=== PATIENT | male | born 1985 | race Two or more races ===

== ENCOUNTER 2021-08-19 07:56 | Outpatient (REF) | payer OTHER, SELFPAY ==
[2021-08-19 10:32] LABS: MANUAL DIFF FLAG NO
[2021-08-19 10:41] LABS: Basophils Percent Auto 0.5 % (0-2); Eosinophils Absolute Auto 0.1 X10*3/uL (0.0-0.4); Eosinophils Percent Auto 0.9 % (0-4); Hematocrit 41.9 % (42-52); Hemoglobin 13.7 g/dl (14.0-18.0); Imm Gran Abs Auto 0.01 X10*3/uL (0.00-0.03); Imm Gran Pct Auto 0.2 % (0.0-0.4); Lymphocytes Absolute Auto 2.2 X10*3/uL (1.2-4.9); Lymphocytes Percent Auto 36.6 % (20-40); Mean Corpuscular HGB Conc 32.7 g/dl (31.0-36.0); Mean Corpuscular Hemoglobin 29.7 pg (27.0-33.0); Mean Corpuscular Volume 90.9 fL (80-98); Mean Platelet Volume 11.7 fL (9.4-12.4); Monocytes Absolute Auto 0.4 X10*3/uL (0.1-1.2); Neutrophils Absolute Auto 3.2 X10*3/uL (2.0-8.3); Neutrophils Percent Auto 54.8 % (45-73); Platelet Count 213 X10*3/uL (160-400); Red Blood Count 4.61 X10*6/uL (4.60-5.80); Red Cell Distribution Width 12.7 % (11.0-16.0); White Blood Count 5.9 X10*3/uL (4.8-10.8)
[2021-08-19 11:26] LABS: Alanine Aminotransferase 24 U/L (0-40); Albumin Level 4.5 g/dL (3.5-5.0); Alkaline Phosphatase 53 U/L (39-117); Anion Gap 12 (12-20); Aspartate Amino Transferase 22 U/L (5-37); Bilirubin Total 0.4 mg/dL (0.0-1.0); Blood Urea Nitrogen 11 mg/dL (9-16); Calcium 9.7 mg/dL (8.4-10.2); Carbon Dioxide 30 mmol/L (22-29); Chloride 103 mmol/L (96-108); Cholesterol 195 mg/dL; Estimated Glomerular Filt Rate > 60; Glucose Fasting 98 mg/dL (60-99); HDL Cholesterol 45 mg/dL; LDL Cholesterol Calculated 131 mg/dl; Potassium 4.7 mmol/L (3.3-5.1); Sodium 140 mmol/L (135-145); Total Protein 6.9 g/dL (6.5-8.0); Triglycerides 95 mg/dL
[2021-08-19 12:07] LABS: Appearance Urine CLEAR; Color Urine YELLOW; Glucose Urine UA NEG (NEG); Leukocyte Esterase Urine NEG (NEG); Nitrite Urine NEG (NEG); Urine Blood TRACE (NEG); Urine Ketones NEG (NEG); Urine Protein NEG (NEG-TRACE)
[2021-08-19 12:31] LABS: TSH reflex Free T4 0.98 uIU/mL (0.32-4.0)
[2021-08-19 14:33] LABS: RBC Urine 0-2 /HPF (0); WBC Urine 0 /HPF (0-4)
[2021-08-24 14:50] LABS: Testosterone, Free 86.1 pg/mL (35.0-155.0); Testosterone, Total 489 ng/dL (250-1100)
== END 2021-08-19 07:57 | disposition home or self-care (01) ==
LOC: HO.WFDLDS 07:56
PROVIDERS: Visit Provider Family Medicine
DX: Z00.00 Encounter for general adult medical examination without abnormal findings (principal); R53.83 Other fatigue
CPT/HCPCS: 36415; 80053; 80061; 81001; 81003; 84402; 84403; 84443; 85025

== ENCOUNTER 2021-11-06 12:13 | Outpatient (REF) | payer OTHER, SELFPAY ==
[2021-11-06 13:24] LABS: MANUAL DIFF FLAG NO
[2021-11-06 13:31] LABS: Basophils Percent Auto 0.7 % (0-2); Eosinophils Absolute Auto 0.1 X10*3/uL (0.0-0.4); Eosinophils Percent Auto 1.5 % (0-4); Hemoglobin 14.1 g/dl (14.0-18.0); Imm Gran Abs Auto 0.01 X10*3/uL (0.00-0.03); Imm Gran Pct Auto 0.2 % (0.0-0.4); Lymphocytes Absolute Auto 2.2 X10*3/uL (1.2-4.9); Lymphocytes Percent Auto 37.1 % (20-40); Mean Corpuscular HGB Conc 33.6 g/dl (31.0-36.0); Mean Corpuscular Hemoglobin 30.5 pg (27.0-33.0); Mean Corpuscular Volume 90.7 fL (80.0-98.0); Mean Platelet Volume 11.3 fL (9.4-12.4); Monocytes Absolute Auto 0.6 X10*3/uL (0.1-1.2); Monocytes Percent Auto 9.4 % (2-11); Neutrophils Percent Auto 51.1 % (45-73); Platelet Count 253 X10*3/uL (160-400); Red Blood Count 4.63 X10*6/uL (4.60-5.80); Red Cell Distribution Width 12.1 % (11.0-16.0); White Blood Count 5.9 X10*3/uL (4.8-10.8)
== END 2021-11-06 12:14 | disposition home or self-care (01) ==
LOC: HO.WFDLDS 12:13
PROVIDERS: Visit Provider Family Medicine
DX: Z00.00 Encounter for general adult medical examination without abnormal findings (principal); D64.9 Anemia, unspecified
CPT/HCPCS: 36415; 85025

== ENCOUNTER → 2022-01-28 09:23 | Outpatient (BNVA) | payer OTHER, SELFPAY | PROVIDERS: PCP Family Medicine; Referring Provider Family Medicine; Visit Provider Psychiatry & Neurology Neurology | DX: G47.19 Other hypersomnia (principal); R06.83 Snoring; R06.81 Apnea, not elsewhere classified | CPT/HCPCS: 99202 ==

== ENCOUNTER → 2022-03-27 14:42 | Outpatient (REF) | payer OTHER, SELFPAY | LOC: HO.SL 14:42 | PROVIDERS: PCP Family Medicine; Visit Provider Psychiatry & Neurology Neurology | DX: R06.81 Apnea, not elsewhere classified (principal); G47.19 Other hypersomnia; R06.83 Snoring | CPT/HCPCS: 95806 ==

== ENCOUNTER → 2022-09-24 14:59 | Outpatient (BNVA) | payer OTHER, SELFPAY | PROVIDERS: PCP Family Medicine; Visit Provider Nurse Practitioner Family | DX: G47.33 Obstructive sleep apnea (adult) (pediatric) (principal) | CPT/HCPCS: 99202 ==

== ENCOUNTER 2022-12-08 19:06 | Outpatient (REF) | payer OTHER, SELFPAY ==
[2022-12-08 19:08] LABS: Urine Cytology See Pathology rpt
[2022-12-08 19:13] LABS: Appearance Urine Clear; Color Urine Yellow; Glucose Urine UA Negative (Negative); Leukocyte Esterase Urine Negative (Negative); Nitrite Urine Negative (Negative); Specific Gravity - Urine 1.015 (1.005-1.025); UMIC TRIGGER UA YES; Urine Blood Small (1+) (Negative); Urine Ketones Negative (Negative); Urine Protein Negative (Neg-Trace)
[2022-12-08 19:28] LABS: Bacteria Urine None Seen (None Seen); Hyaline Casts Urine 0-2 /LPF (0-2); RBC Urine 0-2 /HPF (0-2); Squamous Epithelial Cell Urine 0-2 /HPF (0-2); WBC Urine 0-5 /HPF (0-5)
== END 2022-12-08 19:07 | disposition home or self-care (01) ==
LOC: HO.LNP 19:06
PROVIDERS: Visit Provider Family Medicine
DX: R31.9 Hematuria, unspecified (principal)
CPT/HCPCS: 81001; 88112

== ENCOUNTER 2023-01-29 14:04 | Outpatient (REF) | payer OTHER, SELFPAY ==
[2023-01-29 16:40] LABS: Urine Cytology See Pathology rpt
== END 2023-01-29 14:05 | disposition home or self-care (01) ==
LOC: HO.LAB 14:04
PROVIDERS: PCP Family Medicine; Visit Provider Nurse Practitioner Family
DX: R31.29 Other microscopic hematuria (principal); Z79.899 Other long term (current) drug therapy
CPT/HCPCS: 88112; 99202

== ENCOUNTER 2023-02-23 15:47 | Outpatient (REF) | payer OTHER, SELFPAY ==
--- NOTE | ~2023-02-23 | US_ITS ---
EXAMINATION: US RETROPERITONEAL LIMITED (RENAL ONLY) CLINICAL INFORMATION: Hematuria, unspecified. COMPARISON: Renal ultrasound 10/25/2019. TECHNIQUE: Real-time imaging of the kidneys. FINDINGS: RIGHT KIDNEY: 13.1 x 6.0 x 5.8 cm (SAG x AP x TRV). The kidney is normal in size, contour, and echogenicity. Renal cortical thickness is normal. No calculi or focal parenchymal lesions. No hydronephrosis. LEFT KIDNEY: 13.7 x 6.5 x 5.8 cm (SAG x AP x TRV). The kidney is normal in size, contour, and echogenicity. Renal cortical thickness is normal. No renal calculi or hydronephrosis. There is a benign Bosniak class I, 2.3 cm upper pole cyst. No additional imaging or follow up is needed. No solid renal masses. Incidental note made of an echogenic liver consistent with hepatic steatosis. US/US renal BI IMPRESSION: 1. A cause for the patient's hematuria has not been found. 2. Incidentally noted hepatic steatosis.
== END 2023-02-23 15:48 | disposition home or self-care (01) ==
LOC: HO.HMGCX 15:47
PROVIDERS: PCP Family Medicine; Visit Provider Nurse Practitioner Family
DX: R31.9 Hematuria, unspecified (principal)
CPT/HCPCS: 76775

== ENCOUNTER 2023-03-09 15:13 | Outpatient (REF) | payer OTHER, SELFPAY ==
--- NOTE | ~2023-03-09 | US_ITS ---
EXAMINATION: US PELVIS LIMITED (BLADDER) CLINICAL INFORMATION: Hematuria. COMPARISON: Ultrasound retroperitoneal limited (renal only) 02/23/2023 and 10/25/2019. TECHNIQUE: Real-time imaging of the bladder. FINDINGS: BLADDER: Well distended and normal. Bilateral ureteral jets are demonstrated. Prevoid bladder volume is 505 mL. Postvoid bladder volume is 10 mL. OTHER: Prostate dimensions are 3.9 x 4.0 x 3.8 cm (volume 30.9 mL). US/US bladder IMPRESSION: 1. Unremarkable ultrasound evaluation of the bilateral kidneys. 2. There is borderline prostatomegaly.
== END 2023-03-09 15:14 | disposition home or self-care (01) ==
LOC: HO.HMGCX 15:13
PROVIDERS: PCP Family Medicine; Visit Provider Nurse Practitioner Family
DX: R31.9 Hematuria, unspecified (principal)
CPT/HCPCS: 76857

== ENCOUNTER → 2023-03-13 15:10 | Outpatient (BNVA) | payer OTHER, SELFPAY | PROVIDERS: PCP Family Medicine; Visit Provider Urology | DX: R31.29 Other microscopic hematuria (principal) | CPT/HCPCS: 52000; 99212 ==

== ENCOUNTER 2023-06-19 10:10 | Outpatient (REF) | payer OTHER, SELFPAY ==
[2023-06-19 12:51] LABS: Appearance Urine Clear; Color Urine Yellow; Glucose Urine UA Negative (Negative); Leukocyte Esterase Urine Negative (Negative); Nitrite Urine Negative (Negative); Specific Gravity - Urine 1.025 (1.005-1.025); UMIC TRIGGER UA YES; Urine Blood Small (1+) (Negative); Urine Ketones Negative (Negative); Urine Protein Negative (Neg-Trace)
[2023-06-19 13:55] LABS: MANUAL DIFF FLAG NO
[2023-06-19 14:20] LABS: Basophils Percent Auto 0.4 % (0-2); Eosinophils Absolute Auto 0.1 X10*3/uL (0.0-0.4); Eosinophils Percent Auto 1.3 % (0-4); Hematocrit 42.8 % (42.0-52.0); Hemoglobin 13.9 g/dl (14.0-18.0); Imm Gran Abs Auto 0.01 X10*3/uL (0.00-0.03); Imm Gran Pct Auto 0.2 % (0.0-0.4); Lymphocytes Percent Auto 38.4 % (20-40); Mean Corpuscular HGB Conc 32.5 g/dl (31.0-36.0); Mean Corpuscular Hemoglobin 29.4 pg (27.0-33.0); Mean Corpuscular Volume 90.7 fL (80.0-98.0); Mean Platelet Volume 11.8 fL (9.4-12.4); Monocytes Absolute Auto 0.4 X10*3/uL (0.1-1.2); Monocytes Percent Auto 8.2 % (2-11); Neutrophils Absolute Auto 2.7 x10*3/uL (2.0-8.3); Neutrophils Percent Auto 51.5 % (45-73); Platelet Count 236 X10*3/uL (160-400); Red Blood Count 4.72 X10*6/uL (4.60-5.80); Red Cell Distribution Width 12.7 % (11.0-16.0); White Blood Count 5.3 X10*3/uL (4.8-10.8)
[2023-06-19 14:24] LABS: Bacteria Urine None Seen (None Seen); Hyaline Casts Urine 0-2 /LPF (0-2); Squamous Epithelial Cell Urine 0-2 /HPF (0-2); WBC Urine 0-5 /HPF (0-5)
[2023-06-19 14:36] LABS: Creatinine Urine 119.16 mg/dL; Microalbum/Creatinine Ratio Ur 7.5 ug/mg cr
[2023-06-19 14:44] LABS: Alanine Aminotransferase 35 U/L (0-40); Albumin Level 4.6 g/dL (3.5-5.0); Alkaline Phosphatase 49 U/L (39-117); Anion Gap 13 (12-20); Aspartate Amino Transferase 26 U/L (5-37); Bilirubin Total 0.5 mg/dL (0.0-1.0); Blood Urea Nitrogen 13 mg/dL (9-16); Calcium 9.7 mg/dL (8.4-10.2); Carbon Dioxide 28 mmol/L (22-29); Chloride 102 mmol/L (96-108); Cholesterol 203 mg/dL; Estimated Glomerular Filt Rate > 60; Glucose Fasting 71 mg/dL (60-99); HDL Cholesterol 42 mg/dL; LDL Cholesterol Calculated 149 mg/dl; Potassium 3.5 mmol/L (3.3-5.1); Sodium 139 mmol/L (135-145); Total Protein 7.5 g/dL (6.5-8.0); Triglycerides 63 mg/dL
[2023-06-19 15:00] LABS: TSH reflex Free T4 1.54 uIU/mL (0.32-4.0)
[2023-06-19 15:36] LABS: Syphilis Screen Nonreactive (Nonreactive)
[2023-06-22 09:12] LABS: HBS Num1 0.38 mIU/mL (0-7.99); HBc Num1 0.05 S/CO (0.00-0.79); HBsAGNum1 0.37 S/CO (0.00-0.99); HIV AB/AG Nonreactive (Nonreactive); HIV Num 1 0.06 S/CO (0.00-0.99); Hepatitis B Core Antibody Nonreactive (Nonreactive); Hepatitis B Surface Antigen Negative (Negative); ~HepC Num1 0.13 S/CO (0.00-0.79); ~Hepatitis B Surface Antibody NONREACTIVE (Nonreactive); ~Hepatitis C Antibody Nonreactive (Nonreactive)
== END 2023-06-19 10:11 | disposition home or self-care (01) ==
LOC: HO.WFDLDS 10:10
PROVIDERS: Visit Provider Family Medicine
DX: Z00.00 Encounter for general adult medical examination without abnormal findings (principal); Z11.3 Encounter for screening for infections with a predominantly sexual mode of transmission; Z11.4 Encounter for screening for human immunodeficiency virus [HIV]; I10 Essential (primary) hypertension
CPT/HCPCS: 36415; 80053; 80061; 81001; 82043; 84443; 85025; 86704; 86706; 86780; 86803; 87340; 87389

== ENCOUNTER 2023-06-24 15:29 | Outpatient (AMB) | payer OTHER, SELFPAY ==
--- NOTE | 2023-06-24 16:09 | MHC.OFFWIV ---
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 Patient Tobacco Use Status: Never used Tobacco Allergies ibuprofen [From Advil] Allergy (Mild, Verified 06/25/23 06:16) unknown ampicillin Allergy (Unknown, Verified 06/25/23 06:16) eye swelling, blisters aspirin Allergy (Unknown, Verified 06/25/23 06:16) swelling, bllisters penicillin G Allergy (Unknown, Verified 06/25/23 06:16) blisters, swelling penicillin V Allergy (Unknown, Verified 06/25/23 06:16) Blisters, swelling. Medication List - Last Reconciled 06/25/23 by Jakub Miller MD [id number] [id number] mg (Fioricet) 1 cap PO Q8H 2 days cyanocobalamin (vitamin B-12) (Vitamin B-12) 1,000 mcg PO .weekly cyclobenzaprine 10 mg PO BEDTIME doxycycline hyclate 100 mg PO BID 5 days losartan 50 mg PO DAILY niacin 500 mg PO DAILY nitrofurantoin macrocrystal 50 mg PO BEDTIME 90 days prednisone 20 mg PO DAILY 5 days Do you need a note to return to daycare/school/sports/work: No HPI EP, Low back/left side pain HPI Details Patient presents to the office for a sick visit. Complaining of lower back pain for the past week. No history of fall or trauma prior to the onset of symptoms. No urinary incontinence. No fevers or chills. Pain is worse on bending forwards or sideways. Relieve done sitting down. Pain is radiating into the gluteal area. PFSH Surgical History Hx of tooth extraction Family History (Updated 05/29/23 @ 16:29 by Bernie Cai CMA) Father Heart attack Paternal Grandfather Heart attack Paternal Uncle Heart attack Maternal Aunt FH: bladder cancer Unknown Cancer Social History Housing: House Alcohol intake: never Patient Tobacco Use Status: Never used Tobacco e-Cigarette/Vaping Use: Never Used Second Hand Smoke Exposure: No service: No Current occupational status: employed Current occupation: warehouse Current occupational exposures/hazards: No Cognitive needs: No Hearing needs: No Vision needs: No Physical Exam Vital Signs: Last Vital Signs Pulse 78 06/24/23 16:13 BP 136/90 H 06/24/23 16:13 Pulse Ox 98 06/24/23 16:13 Oxygen Delivery Method Room Air 06/24/23 16:13 Const General: cooperative and healthy appearing Nutritional Appearance: well nourished Orientation/consciousness: patient oriented x3 Limitations: no limitations HEENT Head: Yes normal to inspection Eyes General: appearance normal, both eyes and all related structures Neck Neck: Yes normal visual inspection Chest Chest palpation & inspection: normal palpation of entire chest wall Resp Effort & Inspection: normal respiratory effort Neuro General: patient oriented x3 Assessment & Plan Assessment & Plan (1) Low back pain: Code(s): M54.50 - Low back pain, unspecified Plan cyclobenzaprine called in. d. Patient was advised rest. Note for work if necessary provided. Once pain symptoms subside, patient should start physical therapy. If symptoms worsen to follow-up here. Patient was reluctant to take any anti-inflammatories. Advised him to take Tylenol. Medications: New cyclobenzaprine 10 mg PO BEDTIME 14 tabs 0RF Coding Level of Care Code Est Pt Level 3 (37484) Diagnoses Low back pain M54.50
[2023-06-24 16:13] VITALS: BP 136/90; PULSE 78; O2SAT 98
== END 2023-06-24 16:26 | disposition home or self-care (01) ==
PROVIDERS: PCP Family Medicine; Visit Provider Internal Medicine
DX: M54.50 Low back pain, unspecified (principal)
CPT/HCPCS: 99213

== ENCOUNTER 2023-06-25 10:32 | Outpatient (AMB) | payer OTHER, SELFPAY ==
[2023-06-25 10:40] VITALS: BP 140/88; PULSE 86; O2SAT 97; BMI 30.6
--- NOTE | 2023-06-25 10:40 | MHC.PC.OV ---
Vital Signs 06/25/23 10:40 Height 5 ft 9 in Weight 207 lb BMI 30.6 BP 140/88 H Blood Pressure Location Lt brachial Position Sitting Pulse 86 Pulse Source Pulse Oximeter Pulse Oximetry (%) 97 Intake Visit Reasons: back pain Intake Note: pt is here for back pain due to pulled muscle due to lifting appliances. patient was seen in walk in clinic in [place] yesterday and was given cyclobenzaprine Barrel Turner Required: No Accompanied by: Self / Same As Patient Allergies ibuprofen [From Advil] Allergy (Mild, Verified 06/25/23 10:41) unknown ampicillin Allergy (Unknown, Verified 06/25/23 10:41) eye swelling, blisters aspirin Allergy (Unknown, Verified 06/25/23 10:41) swelling, bllisters penicillin G Allergy (Unknown, Verified 06/25/23 10:41) blisters, swelling penicillin V Allergy (Unknown, Verified 06/25/23 10:41) Blisters, swelling. Tobacco use date assessed: 06/25/23 Dental Screening Dental Screen Date: 06/25/23 Did you have a dental visit in the last 12 months?: Yes Did you have a dental problem in the last 6 months where you did not have access to dental care?: No Was dental information given to patient?: Patient has dentist HPI back pain HPI Details 38 y/o male presents today with complaints of back pain. Had seen Dr. Miller yesterday 06/24/23 for back pain - was advisted rest and prescribed cyclobenzaprine 10mg. Was also advised to take tylenol. Pt had been reluctant to take any anti-inflammatories. He reports ongoing pain and cyclobenzaprine has not helped. [facility] Surgical History Hx of tooth extraction Family History Father Heart attack Paternal Grandfather Heart attack Paternal Uncle Heart attack Maternal Aunt FH: bladder cancer Unknown Cancer Social History Housing: House Alcohol intake: never Patient Tobacco Use Status: Never used Tobacco e-Cigarette/Vaping Use: Never Used Second Hand Smoke Exposure: No service: No Current occupational status: employed Current occupation: [employer] Current occupational exposures/hazards: No Cognitive needs: No Hearing needs: No Vision needs: No Questionnaire PHQ-9 Over the last 2 weeks, how often have you been bothered by any of the following problems? 1. Little interest or pleasure in doing things: not at all 2. Feeling down, depressed, or hopeless: not at all 3. Trouble falling or staying asleep, or sleeping too much: not at all 4. Feeling tired or having little energy: not at all 5. Poor appetite or overeating: not at all 6. Feeling bad about yourself - or that you are a failure or have let yourself or your family down: not at all 7. Trouble concentrating on things, such as reading the newspaper or watching television: not at all 8. Moving or speaking so slowly that other people could have noticed. Or the opposite - being so fidgety or restless that you have been moving around a lot more than usual: not at all 9. Thoughts that you would be better off or of hurting yourself in some way: not at all Total score: 0 Source: Developed by Drs. Joel Pedersen, Charlee Nagy, Pawel Aburto and colleagues, with an educational nahed from [employer]. Thrive Questionnaire Date Thrive assessed: 12/08/22 ZHOU-7 AMB Questionnaire ZHOU-7 Date ZHOU - 7 assessed: 06/25/23 Feeling nervous, anxious, or on edge: 0 = Not at all Not being able to stop or control worryin = Not at all Worrying too much about different things: 0 = Not at all Trouble relaxin = Not at all Being so restless that it is hard to sit still: 0 = Not at all Becoming easily annoyed or irritable: 0 = Not at all Feeling afraid as if something awful might happen: 0 = Not at all Total ZHOU-7 score (0-4 normal; 5-9 mild; 10-14 moderate; 15-21 severe): 0 Source: Developed by Drs. Joel Pedersen, Charlee Nagy, Pawel Aburto and colleagues, with an educational nahed from [employer]. ZHOU-7 Assessment Billing ZHOU-7 Assessment Tool: ZHOU-7 Assessment 69678 Review of Systems Const Denies chills, Denies fatigue, Denies fever(s), Denies headache(s) and Denies weakness ENT Denies dizziness and Denies headache(s) Card Denies dyspnea Resp Denies cough, Denies dyspnea, Denies wheezing and Denies other (shortness of breath) Musc Reports back pain, Denies numbness and Denies tingling Neuro Denies dizziness, Denies headache(s), Denies numbness, Denies tingling and Denies weakness Psych Denies anxiety and Denies depression Endo Denies fatigue Aller/Immun Denies wheezing Physical exam (Primary Care) Vital Signs: Last Vital Signs Pulse 86 06/25/23 10:40 BP 140/88 H 06/25/23 10:40 Pulse Ox 97 06/25/23 10:40 BMI result Body Mass Index 30.6 Tobacco/Smoking Status: Tobacco use Status Tobacco use date assessed 06/25/23 06/25/23 10:42 Patient Tobacco Use Status Never used Tobacco 06/25/23 10:42 e-Cigarette/Vaping Use Never Used 06/25/23 10:42 PHQ-9: PHQ-9 Score PHQ-9: Total score 0 06/25/23 11:27 Thrive Assessment: Date of Thrive Assessment Date Thrive assessed 12/08/22 06/25/23 10:42 Const General: well developed; No acute distress Nutritional Appearance: well nourished Orientation/consciousness: patient oriented x3 [facility] Head: Yes normocephalic and Yes atraumatic Eyes General: appearance normal, both eyes and all related structures Pupils: Equal, round and reactive pupils present EOM: EOMs intact bilaterally Resp Effort & Inspection: normal respiratory effort Neuro Other: Walking hunched over, unsteady gait General: patient oriented x3 and No gait normal Cranial nerves: Yes Equal, round and reactive pupils present Psych Affect: normal affect Assessment and Plan Assessment & Plan (1) Low back pain: Code(s): M54.50 - Low back pain, unspecified Plan: Ongoing severe back pain. Was seen at the walk-in yesterday in given cyclobenzaprine. Cannot take oral NSAIDs or aspirin due to allergy. Will check x-ray of lumbar spine Will give patient a 5 day course prednisone and he can trial a topical NSAID. He says he has tolerated oral diclofenac in the past so will give him Voltaren gel. He should still test gel on a small patch of skin prior to using as treatment. Advised him to change cyclobenzaprine to twice a day for 7 days Will give him a cane to help him with balance Will follow-up on x-ray (2) Unsteady gait: Code(s): R26.81 - Unsteadiness on feet Orders: Orders XR lumbar spine 2-3V Today M54.50 - Low back pain, unspecified Medications: New diclofenac sodium 1% (Voltaren Arthritis Pain) Test on small patch of skin prior to treatment to evaluate for sensitivity/allergy 4 grams topical QID 10 days 100 grams 0RF prednisone 40 mg (2 x 20 mg) PO DAILY 5 days 10 tabs 0RF cane Daily As directed, 30 days 1 ea 0RF M54.50 - Low back pain, unspecified, R26.81 - Unsteadiness on feet Changed From cyclobenzaprine 10 mg PO BEDTIME 14 tabs 0RF To cyclobenzaprine 10 mg PO BID 7 days 14 tabs 0RF Coding Level of Care Code Est Pt Level 3 (36288) Diagnoses Low back pain M54.50 Unsteady gait R26.81 Additional Codes ZHOU-7 Assessment Billing - ZHOU-7 Assessment Tool: ZHOU-7 Assessment 22559 ([id number])
== END 2023-06-25 11:45 | disposition home or self-care (01) ==
PROVIDERS: PCP Family Medicine; Visit Provider Family Medicine
DX: M54.50 Low back pain, unspecified (principal); R26.81 Unsteadiness on feet
CPT/HCPCS: 99213

== ENCOUNTER 2023-07-01 16:49 | Outpatient (AMB) | payer OTHER, SELFPAY ==
--- NOTE | 2023-07-01 16:34 | MHC.PC.OV ---
Intake Visit Reasons: f/u CPE-labs Intake Note: pt is here for review of labs Allergies ibuprofen [From Advil] Allergy (Mild, Verified 06/25/23 10:41) unknown ampicillin Allergy (Unknown, Verified 06/25/23 10:41) eye swelling, blisters aspirin Allergy (Unknown, Verified 06/25/23 10:41) swelling, bllisters penicillin G Allergy (Unknown, Verified 06/25/23 10:41) blisters, swelling penicillin V Allergy (Unknown, Verified 06/25/23 10:41) Blisters, swelling. Tobacco use date assessed: 06/25/23 Dental Screening Dental Screen Date: 07/01/23 Did you have a dental visit in the last 12 months?: Yes Did you have a dental problem in the last 6 months where you did not have access to dental care?: No Was dental information given to patient?: Patient has dentist HPI f/u CPE-labs HPI Details 38 y/o male presents to f/u CPE-labs via telemedicine. Labs were drawn 06/19/23. Reviewed labs with pt. Borderline anemia. Triglycerides 63. TC 203. LDL 149. HDL 42. Small 1+ blood in urine. PFSH Surgical History Hx of tooth extraction Family History Father Heart attack Paternal Grandfather Heart attack Paternal Uncle Heart attack Maternal Aunt FH: bladder cancer Unknown Cancer Social History Housing: House Alcohol intake: never Patient Tobacco Use Status: Never used Tobacco e-Cigarette/Vaping Use: Never Used Second Hand Smoke Exposure: No service: No Current occupational status: employed Current occupation: warehouse Current occupational exposures/hazards: No Cognitive needs: No Hearing needs: No Vision needs: No Questionnaire Thrive Questionnaire Date Thrive assessed: 12/08/22 ZHOU-7 AMB Questionnaire ZHOU-7 Date ZHOU - 7 assessed: 06/25/23 Source: Developed by Drs. Joel Pedersen, Charlee Nagy, Pawel Aburto and colleagues, with an educational nahed from [employer]. Physical exam (Primary Care) Tobacco/Smoking Status: Tobacco use Status Tobacco use date assessed 06/25/23 07/01/23 16:36 Patient Tobacco Use Status Never used Tobacco 07/01/23 16:36 e-Cigarette/Vaping Use Never Used 07/01/23 16:36 Thrive Assessment: Date of Thrive Assessment Date Thrive assessed 12/08/22 07/01/23 16:36 Telehealth Telehealth Location of provider rendering services: practice address Location of patient: address on file Patient Identification confirmed using: Name, : Yes Telehealth method: voice only Patient verbally consented to treatment: Yes Patient verbally consented to billing insurance company: Yes Patient informed of any privacy concerns related to visit: Yes Minutes spent on Phone/Video with Pt.: 7 Assessment and Plan Assessment & Plan (1) Mild anemia: Code(s): D64.9 - Anemia, unspecified Plan: Very mild/boderline anemia. Possibly secondary to chronic hematuria but will evaluate with additional labs with his next lab draw. (2) Hematuria: Code(s): R31.9 - Hematuria, unspecified Plan: Ongoing hematuria Follow-up with urology as recommended (3) Hypercholesterolemia: Code(s): E78.00 - Pure hypercholesterolemia, unspecified Plan: LDL cholesterol is too high Recommended a diet lower in saturated fats and cholesterol and we will follow-up on this in a few months. Orders: Orders Comprehensive [place]. Panel Fast Today E78.00 - Pure hypercholesterolemia, unspecified, Z00.00 - Encounter for general adult medical examination without abnormal findings Lipid Panel Today E78.00 - Pure hypercholesterolemia, unspecified, Z00.00 - Encounter for general adult medical examination without abnormal findings Reticulocyte Count Today D64.9 - Anemia, unspecified Vitamin B12 and Folate Today D64.9 - Anemia, unspecified, E53.8 - Deficiency of other specified B group vitamins Ferritin Today D64.9 - Anemia, unspecified IRON PROFILE Today D64.9 - Anemia, unspecified Medications: Refilled prednisone 40 mg (2 x 20 mg) PO DAILY 10 tabs 0RF 5 days Coding Level of Care Code Tele Est Pt Level 2 (80010) Diagnoses Mild anemia D64.9 Hematuria R31.9 Hypercholesterolemia E78.00
== END 2023-07-01 17:00 ==
LOC: HO.HMGFM 16:49
PROVIDERS: PCP Family Medicine; Visit Provider Family Medicine
DX: D64.9 Anemia, unspecified (principal); R31.9 Hematuria, unspecified; E78.00 Pure hypercholesterolemia, unspecified
CPT/HCPCS: 99212

== ENCOUNTER 2023-07-08 08:37 | Outpatient (AMB) | payer OTHER, SELFPAY ==
[2023-07-08 08:39] VITALS: BP 140/80; PULSE 74; O2SAT 96; BMI 30.9
--- NOTE | 2023-07-08 08:39 | MHC.PC.OV ---
Vital Signs 07/08/23 08:39 Height 5 ft 9 in Weight 209 lb BMI 30.9 BP 140/80 H Blood Pressure Location Lt brachial Position Sitting Pulse 74 Pulse Source Pulse Oximeter Pulse Oximetry (%) 96 Oxygen Delivery Method Room Air Intake Visit Reasons: Follow Up On Back Pain Intake Note: Patient is here to follow up on lower back pain. Allergies ibuprofen [From Advil] Allergy (Mild, Verified 07/08/23 08:42) unknown ampicillin Allergy (Unknown, Verified 07/08/23 08:42) eye swelling, blisters aspirin Allergy (Unknown, Verified 07/08/23 08:42) swelling, bllisters penicillin G Allergy (Unknown, Verified 07/08/23 08:42) blisters, swelling penicillin V Allergy (Unknown, Verified 07/08/23 08:42) Blisters, swelling. Tobacco use date assessed: 07/08/23 Dental Screening Dental Screen Date: 07/08/23 Did you have a dental visit in the last 12 months?: No Did you have a dental problem in the last 6 months where you did not have access to dental care?: No Was dental information given to patient?: No HPI Follow Up On Back Pain HPI Details 38 y/o male presents to f/u back pain. Had given pt a 5 day course prednisone on 06/25/23 and trialed a topical NSAID. Had also advised him to change cyclobenzaprine to twice a day for 7 days. He reports about a week ago his back pain had greatly improved. He reports however that he had lifted something simple at work and his back pain had returned. He states leaning forward causes him discomfort. Walking and standing up straight is fine. He has not gotten his x-rays done yet. HPI Comments History of Present Illness Details Documentation assistance for Gael Dean MD, was provided by Luis Mckinley, Software Applications Designer on 07/08/2023 9:03 PM EST. I, Dr. Dean, have read, observed, and verified documentation. PFSH Surgical History Hx of tooth extraction Family History Father Heart attack Paternal Grandfather Heart attack Paternal Uncle Heart attack Maternal Aunt FH: bladder cancer Unknown Cancer Social History Housing: House Alcohol intake: never Patient Tobacco Use Status: Never used Tobacco e-Cigarette/Vaping Use: Never Used Second Hand Smoke Exposure: No service: No Current occupational status: employed Current occupation: warehouse Current occupational exposures/hazards: No Cognitive needs: No Hearing needs: No Vision needs: No Questionnaire Thrive Questionnaire Date Thrive assessed: 12/08/22 ZHOU-7 AMB Questionnaire ZHOU-7 Date ZHOU - 7 assessed: 06/25/23 Source: Developed by Drs. Joel Pedersen, Charlee Nagy, Pawel Aburto and colleagues, with an educational nahed from [employer]. Review of Systems Const Denies chills, Denies fatigue, Denies fever(s), Denies headache(s) and Denies weakness ENT Denies dizziness and Denies headache(s) Card Denies dyspnea Resp Denies cough, Denies dyspnea, Denies wheezing and Denies other (shortness of breath) Musc Reports back pain, Denies numbness and Denies tingling Neuro Denies dizziness, Denies headache(s), Denies numbness, Denies tingling and Denies weakness Psych Denies anxiety and Denies depression Endo Denies fatigue Aller/Immun Denies wheezing Physical exam (Primary Care) Vital Signs: Last Vital Signs Pulse 74 07/08/23 08:39 BP 140/80 H 07/08/23 08:39 Pulse Ox 96 07/08/23 08:39 Oxygen Delivery Method Room Air 07/08/23 08:39 BMI result Body Mass Index 30.9 Tobacco/Smoking Status: Tobacco use Status Tobacco use date assessed 07/08/23 07/08/23 08:48 Patient Tobacco Use Status Never used Tobacco 07/08/23 08:48 e-Cigarette/Vaping Use Never Used 07/08/23 08:48 Thrive Assessment: Date of Thrive Assessment Date Thrive assessed 12/08/22 07/08/23 08:48 Const General: well developed; No acute distress Nutritional Appearance: well nourished Orientation/consciousness: patient oriented x3 [facility] Head: Yes normocephalic and Yes atraumatic Eyes General: appearance normal, both eyes and all related structures Pupils: Equal, round and reactive pupils present EOM: EOMs intact bilaterally Resp Effort & Inspection: normal respiratory effort Neuro General: patient oriented x3 and gait normal Cranial nerves: Yes Equal, round and reactive pupils present Psych Affect: normal affect Assessment and Plan Assessment & Plan (1) Low back pain: Code(s): M54.50 - Low back pain, unspecified Plan: Return of low back pain once he began working. Will give him the rest of the week off Use ice and heat Will give him a prednisone taper; patient has history of allergy to ibuprofen Use cyclobenzaprine Start physical therapy Will check lumbar spine x-rays If imaging indicates or if not improving with physical therapy, will refer to ortho (2) Drug allergy: Code(s): Z88.9 - Allergy status to unspecified drugs, medicaments and biological substances Plan: Patient notes allergies and specifically allergy to ibuprofen and requests referral for evaluation by allergy medicine Referred Orders: Orders PT Evaluation and Treatment Today M54.50 - Low back pain, unspecified XR lumbar spine 2-3V Today M54.50 - Low back pain, unspecified Referrals Allergy & Immunology Referral T78.40XA - Allergy, unspecified, initial encounter, Z88.9 - Allergy status to unspecified drugs, medicaments and biological substances Medications: New prednisone 4 tabs daily for 4 days, 3 tabs daily for 2 days, 2 tabs daily for 2 days, 1 tab daily for 2 days PO daily; 28 tabs 0RF 10 days Refilled cyclobenzaprine 10 mg PO BID 14 tabs 0RF 7 days diclofenac sodium 1% (Voltaren Arthritis Pain) Test on small patch of skin prior to treatment to evaluate for sensitivity/allergy 4 grams topical QID 100 grams 0RF 10 days Coding Level of Care Code Est Pt Level 3 (47223) Diagnoses Low back pain M54.50 Drug allergy Z88.9
== END 2023-07-08 09:21 | disposition home or self-care (01) ==
PROVIDERS: PCP Family Medicine; Visit Provider Family Medicine
DX: M54.50 Low back pain, unspecified (principal); Z88.9 Allergy status to unspecified drugs, medicaments and biological substances
CPT/HCPCS: 99213

== ENCOUNTER 2023-07-13 16:33 | Outpatient (REF) | payer OTHER, SELFPAY ==
--- NOTE | ~2023-07-13 | XR_ITS ---
EXAMINATION: XR LUMBOSACRAL SPINE CLINICAL INFORMATION: Low back pain. COMPARISON: None available. TECHNIQUE: Three views of the lumbosacral spine. FINDINGS: The vertebral bodies and posterior elements are normal. The disc spaces are preserved and the vertebral alignment is normal. The paraspinal soft tissues are normal. XR/XR lumbar spine 2-3V IMPRESSION: Unremarkable lumbar spine.
== END 2023-07-13 16:34 | disposition home or self-care (01) ==
LOC: HO.HMGCX 16:33
PROVIDERS: PCP Family Medicine; Visit Provider Family Medicine
DX: M54.50 Low back pain, unspecified (principal)
CPT/HCPCS: 72100

== ENCOUNTER 2023-09-14 13:11 | Outpatient (AMB) | payer OTHER, SELFPAY ==
--- NOTE | 2023-09-14 13:12 | A.OFFVIS_ITS ---
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 Medication List - Last Reconciled 09/14/23 by JOCELIN Burns cane Daily As directed, 30 days cyanocobalamin (vitamin B-12) (Vitamin B-12) 1,000 mcg PO .weekly cyclobenzaprine 10 mg PO BID 7 days diclofenac sodium 1% (Voltaren Arthritis Pain) 4 grams topical QID 10 days losartan 50 mg PO DAILY HPI HPI Comments History of Present Illness Details Sae is a pleasant 38-year-old male patient of Dr. Kidd. He reports to the office today for follow-up of his microscopic hematuria. He reports longstanding history of microscopic hematuria over the last 3-4 years. 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 When asked patient denies smoking history or and known chemical exposure in the workplace. 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 When asked he denies any urinary issues or concerns. He denies changes to urinary habits. He denies urinary urgency, urinary frequency, incontinence, changes to urinary stream, dysuria, nocturia, hematuria, fever, and or chills. During last office visit here approximately 6 months ago patient underwent in office cystoscopy with Dr. Gregg. Per Dr. Kapadia last office note in office cystoscopy negative. It appears patient was trialed on low-dose Macrobid. In discussion with the patient today he reports finishing low-dose antibiotic therapy. He reports noting no difference as he had never had any urinary symptoms. In office urinalysis results reviewed with the patient today. 2+ microscopic hematuria otherwise within normal limits. Discussed at length potential causes for microscopic hematuria and continuation of surveillance monitoring at this time. She otherwise offers no other issues or concerns. Microscopic hematuria Denies smoking history or Workplace exposure No reported lower urinary tract symptoms Cytology negative Renal bladder ultrasounds negative Cystoscopy today in office negative PFSH Surgical History Hx of tooth extraction Family History Father Heart attack Paternal Grandfather Heart attack Paternal Uncle Heart attack Maternal Aunt FH: bladder cancer Unknown Cancer Social History Housing: House Alcohol intake: never Patient Tobacco Use Status: Never used Tobacco e-Cigarette/Vaping Use: Never Used Second Hand Smoke Exposure: No service: No Current occupational status: employed Current occupation: [employer] Current occupational exposures/hazards: No Cognitive needs: No Hearing needs: No Vision needs: No Review of Systems Const All systems reviewed & are unremarkable except as noted in HPI and below Reports no additional complaints Eyes Reports no additional complaints ENT Reports no additional complaints Card Reports no additional complaints Resp Reports no additional complaints GI Reports no additional complaints Reports as per HPI Musc Reports no additional complaints Neuro Reports no additional complaints Psych Reports no additional complaints Endo Reports no additional complaints Kvng/Lymph Reports no additional complaints Aller/Immun Reports no additional complaints Physical Exam Const General: cooperative, healthy appearing, comfortable, no acute distress, well developed, alert and awake Nutritional Appearance: average body habitus Orientation/consciousness: patient oriented x3 Limitations: no limitations HEENT Head: Yes normal to inspection, Yes normocephalic and Yes atraumatic Ears: hearing grossly normal bilaterally Eyes General: appearance normal, both eyes and all related structures Neck Neck: Yes normal visual inspection and Yes trachea midline Chest Chest palpation & inspection: normal inspection of the chest Resp Effort & Inspection: normal respiratory effort and able to speak in complete sentences Cardio Rate: regular rate GI Inspection: Yes normal to inspection General: Yes no CVA tenderness Back/Spine/Pelvis Back: no CVA tenderness Skin General skin exam: no rashes or lesions noted Neuro General: patient oriented x3 Extrem General: Yes normal to inspection Psych Appearance: grossly normal and well kempt Mental Status: mental status grossly normal Speech and movement: Normal speech and movement present and Clear speech present Affect: normal affect Attitude: cooperative Thought process: Normal thought process present Thought content: Normal thought content present Insight: Good insight present (Psych) Judgement: Good judgement present (Psych) Results AMB Urinalysis, Automated UA Leukoctes 0 Carly/uL Last Edit by [facility] Mob[facility] on 09/14/23 13:31 UA Nitrite Negative Last Edit by [facility] on 09/14/23 13:31 UA Urobilinogen 0.2 mg/dL Last Edit by [facility] on 09/14/23 13:31 UA Protein 0 mg/dL Last Edit by [facility] on 09/14/23 13:31 UA pH 6.0 Last Edit by [facility] on 09/14/23 13:31 UA Blood 80 Otto/uL Last Edit by [facility] on 09/14/23 13:31 UA Specific Doole 1.020 Last Edit by [facility] on 09/14/23 13:31 UA Ketone Negative Last Edit by [facility] on 09/14/23 13:31 UA Bilirubin 0 mg/dL Last Edit by [facility] on 09/14/23 13:31 UA Glucose 0 mg/dL Last Edit by [facility] on 09/14/23 13:31 Results Reviewed Results Reviewed: Laboratory Last Values Urine pH (Auto) 6.0 09/14/23 13:14 Specific Doole (Auto) 1.020 09/14/23 13:14 Urine Protein (Auto) 0 mg/dL 09/14/23 13:14 Glucose (UA)(Auto) 0 mg/dL 09/14/23 13:14 Urine Ketones (Auto) Negative 09/14/23 13:14 Urine Blood (Auto) 80 Otto/uL 09/14/23 13:14 Urine Nitrite (Auto) Negative 09/14/23 13:14 Urine Bilirubin (Auto) 0 mg/dL 09/14/23 13:14 Urine Urobilinogen (Auto) 0.2 mg/dL 09/14/23 13:14 Leukocyte Esterase (Auto) 0 Carly/uL 09/14/23 13:14 Assessment & Plan Assessment & Plan (1) Microscopic hematuria: Code(s): R31.29 - Other microscopic hematuria Plan In office urinalysis results reviewed with the patient today; as noted above; will send for urine cytology. Discussed at length potential causes for microscopic hematuria and continuation of surveillance monitoring In office cystoscopy noted to be negative. Discussed, educated, instructed on the importance of drinking plenty of water daily. Renal bladder ultrasound; NAD Patient denies any bothersome urinary issues or concerns at this time. Will obtain retroperitoneal ultrasound in 1 year Follow-up in 1 year with imaging to be completed prior; or sooner with any issues, concerns, and or questions. Orders: Orders Urine Cytology Today R31.29 - Other microscopic hematuria AMB Urinalysis Automated Today Z13.9 - Encounter for screening, unspecified US retroperitoneal comp 364 Days R31.29 - Other microscopic hematuria Patient Instructions: The patient had an opportunity to ask questions regarding the treatment plan. All questions were answered. Physical exam, labs, and imaging were discussed and reviewed in detail. As well as risks, benefits, and discussion of treatment choices. No major barriers to understanding were identified. The patient expressed understanding and agreement with the above treatment plan. The patient was made aware they should contact our office by phone for worsening of their current condition, the appearance of new symptoms, or with any questions or concerns. Compliance is encouraged with any medications and follow up testing that is ordered. It is a privilege to be allowed the opportunity to participate in? your urological care.? Again, if you have any questions or concerns If you have any questions or concerns please do not hesitate to contact me. The office is [phone]. This note is constructed using voice recognition software. While every effort has been made to ensure accuracy clinical administrator errors may have been included. Yours sincerely, JOCELIN Burns Coding Level of Care Code Est Pt Level 3 (14580) Diagnoses Microscopic hematuria R31.29
== END 2023-09-14 13:51 | disposition home or self-care (01) ==
PROVIDERS: PCP Family Medicine; Visit Provider Nurse Practitioner Family
DX: R31.29 Other microscopic hematuria (principal)
CPT/HCPCS: 99213

== ENCOUNTER 2023-09-14 13:11 | Outpatient (REF) | payer OTHER, SELFPAY ==
[2023-09-14 17:05] LABS: Urine Cytology See Pathology rpt
== END 2023-09-14 13:12 | disposition home or self-care (01) ==
LOC: HO.LNP 13:11
PROVIDERS: Visit Provider Nurse Practitioner Family
DX: R31.29 Other microscopic hematuria (principal)
CPT/HCPCS: 81003; 88112; 99212

== ENCOUNTER 2024-05-27 10:58 | Outpatient (AMB) | payer OTHER, SELFPAY ==
[2024-05-27 11:28] VITALS: BP 142/72; PULSE 83; O2SAT 98; BMI 32.4
--- NOTE | 2024-05-27 11:28 | A.OFFPC_ITS ---
Vital Signs 05/27/24 11:28 Height 5 ft 8 in Weight 213 lb BMI 32.4 BP 142/72 H Blood Pressure Location Lt brachial Position Sitting Pulse 83 Pulse Source Pulse Oximeter Pulse Oximetry (%) 98 Oxygen Delivery Method Room Air Intake Visit Reasons: Back pain Intake Note: Patient is here for follow up on back pain and would like to talk about Naima. Allergies ibuprofen [From Advil] Allergy (Mild, Verified 05/27/24 11:32) unknown ampicillin Allergy (Unknown, Verified 05/27/24 11:32) eye swelling, blisters aspirin Allergy (Unknown, Verified 05/27/24 11:32) swelling, bllisters penicillin G Allergy (Unknown, Verified 05/27/24 11:32) blisters, swelling penicillin V Allergy (Unknown, Verified 05/27/24 11:32) Blisters, swelling. Medication List - Last Reconciled 05/27/24 by Gael Dean MD cane Daily As directed, 30 days cyanocobalamin (vitamin B-12) (Vitamin B-12) 1,000 mcg PO .weekly cyclobenzaprine 10 mg PO BID 7 days diclofenac sodium 1% (Voltaren Arthritis Pain) 4 grams topical QID 10 days losartan 50 mg PO DAILY Tobacco use date assessed: 05/27/24 Dental Screening Dental Screen Date: 05/27/24 Did you have a dental visit in the last 12 months?: Yes Did you have a dental problem in the last 6 months where you did not have access to dental care?: No Was dental information given to patient?: Patient has dentist HPI Back pain HPI Details Pt presents to f/u low back pain, hypertension, obesity. Blood pressure today 142/72, 83p. He is on losartan 50mg daily. 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 a?little Still?has?not?tried?physical?therapy X-ray?last?year?was?negative?with?normal?disc?heights. [facility] Surgical History Hx of tooth extraction Family History Father Heart attack Paternal Grandfather Heart attack Paternal Uncle Heart attack Maternal Aunt FH: bladder cancer Unknown Cancer Social History Housing: House Alcohol intake: never Patient Tobacco Use Status: Never used Tobacco e-Cigarette/Vaping Use: Never Used Second Hand Smoke Exposure: No service: No Current occupational status: employed Current occupation: [employer] Current occupational exposures/hazards: No Cognitive needs: No Hearing needs: No Vision needs: No Questionnaire Thrive Questionnaire Date Thrive assessed: 12/08/22 ZHOU-7 AMB Questionnaire ZHOU-7 Date ZHOU - 7 assessed: 06/25/23 Source: Developed by Drs. Joel Pedersen, Charlee Nagy, Pawel Aburto and colleagues, with an educational nahed from [employer]. Review of Systems Const Denies chills, Denies fatigue, Denies fever(s), Denies headache(s) and Denies weakness ENT Denies dizziness and Denies headache(s) Card Denies chest pain, Denies lightheadedness, Denies dyspnea and Denies other (Palpitations) Resp Denies cough, Denies dyspnea, Denies wheezing and Denies other ( shortness of breath) Musc Denies numbness and Denies tingling Neuro Denies dizziness, Denies headache(s), Denies numbness, Denies tingling, Denies paresthesias and Denies weakness Psych Denies anxiety and Denies depression Endo Denies fatigue Aller/Immun Denies wheezing Physical exam (Primary Care) Vital Signs: Last Vital Signs Pulse 83 05/27/24 11:28 BP 142/72 H 05/27/24 11:28 Pulse Ox 98 05/27/24 11:28 Oxygen Delivery Method Room Air 05/27/24 11:28 BMI result Body Mass Index 32.4 Tobacco/Smoking Status: Tobacco use Status Tobacco use date assessed 05/27/24 05/27/24 11:41 Patient Tobacco Use Status Never used Tobacco 05/27/24 11:30 e-Cigarette/Vaping Use Never Used 05/27/24 11:30 Thrive Assessment: Date of Thrive Assessment Date Thrive assessed 12/08/22 05/27/24 11:30 Const General: no acute distress and well developed Nutritional Appearance: well nourished and obese Orientation/consciousness: patient oriented x3 [facility]: Yes normocephalic and Yes atraumatic Eyes General: appearance normal, both eyes and all related structures Pupils: Equal, round and reactive pupils present EOM: EOMs intact bilaterally Resp Effort & Inspection: normal respiratory effort Auscultation: clear to auscultation bilaterally Cardio Rate: regular rate Rhythm: regular rhythm Heart sounds: S1 normal heart sound present, S2 normal heart sound present, no gallops, no murmurs and no rubs Neuro General: patient oriented x3 and gait normal Cranial nerves: Yes Equal, round and reactive pupils present Psych Affect: normal affect Assessment and Plan Assessment & Plan (1) Low back pain: Code(s): M54.50 - Low back pain, unspecified Plan: Recurring?low?back?pain?and?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 Also?referred?him?for?physical?therapy. Encouraged?weight?loss (2) Essential hypertension: Code(s): I10 - Essential (primary) hypertension Plan: Blood?pressure?is?a?little?high.??He?is?taking?losartan?50?mg?daily No?medication?changes?today?but?I?encouraged?a?diet?low?in?sodium/salt?and?encou raged?weight?loss?and?exercise (3) Obesity: Code(s): E66.9 - Obesity, unspecified Plan: Patient?tried?his?'s?Mounjaro?and?has?lost?about?10?lb Strongly?discouraged?him?from?taking?other?people's?prescription?medications Nevertheless?he?has?lost?some?weight?with?this?and?would?like?to?try?it?for?weig ht?loss. Will?send?script?at?lowest?dose. Encouraged?regular?meals. Orders: Orders PT Evaluation and Treatment Today M54.50 - Low back pain, unspecified Comprehensive [place]. Panel Fast Today Z00.00 - Encounter for general adult medical examination without abnormal findings Complete Blood Count Auto Diff Today Z00.00 - Encounter for general adult medical examination without abnormal findings TSH reflex Free T4 Today Z00.00 - Encounter for general adult medical ex amination without abnormal findings Lipid Panel Today Z00.00 - Encounter for general adult medical examination without abnormal findings Microalbumin, Random (w Creat) Today I10 - Essential (primary) hypertension UA and rflx microscopic Today Z00.00 - Encounter for general adult medical examination without abnormal findings Vitamin D 25-OH Total Today E55.9 - Vitamin D deficiency, unspecified Medications: New tirzepatide (Mounjaro) 2.5 mg (0.5 mL) subcut QWEEK 4 weeks 2 mL 0RF Refilled prednisone 40 mg (2 x 20 mg) PO DAILY 5 days 10 tabs 0RF cyclobenzaprine 10 mg PO BID 7 days 14 tabs 0RF M54.50 - Low back pain, unspecified Coding Level of Care Code Est Pt Level 4 (35026) Diagnoses Low back pain M54.50 Essential hypertension I10 Obesity E66.9
== END 2024-05-27 12:01 | disposition home or self-care (01) ==
PROVIDERS: PCP Family Medicine; Visit Provider Family Medicine
DX: M54.50 Low back pain, unspecified (principal); I10 Essential (primary) hypertension; E66.9 Obesity, unspecified; Z68.32 Body mass index [BMI] 32.0-32.9, adult
CPT/HCPCS: 99214

== ENCOUNTER 2024-08-30 10:25 | Outpatient (REF) | payer OTHER, SELFPAY ==
--- NOTE | ~2024-08-30 | US_ITS ---
EXAMINATION: US RETROPERITONEAL COMPLETE (RENAL) CLINICAL INFORMATION: Other microscopic hematuria. COMPARISON: Ultrasound pelvis limited (bladder) 03/09/2023. Renal ultrasound 02/23/2023 and 10/25/2019. TECHNIQUE: Real-time imaging of the kidneys and bladder. FINDINGS: RIGHT KIDNEY: 13.5 x 7.6 x 7.1 cm (SAG x AP x TRV). The kidney is normal in size, contour, and echogenicity. Renal cortical thickness is normal. No calculi or focal parenchymal lesions. No hydronephrosis. LEFT KIDNEY: 14.0 x 8.2 x 5.7 cm (SAG x AP x TRV). The kidney is normal in size, contour, and echogenicity. Renal cortical thickness is normal. No renal calculi or hydronephrosis. A benign upper pole 2.6 cm Bosniak class I renal cyst is noted which requires no additional imaging or follow up. No solid renal masses are seen. BLADDER: Well distended and normal. Bilateral ureteral jets are demonstrated. Prevoid bladder volume is 660 mL. Postvoid bladder volume is 36.3 mL. ADDITIONAL FINDINGS: Prostate is enlarged at 35 mL (previously 31 mL). US/US retroperitoneal comp IMPRESSION: A cause for the patient's microscopic hematuria has not been found. Mild BPH. Electronically signed by: Armani Garcia MD 10/13/2024 11:51 AM EST
== END 2024-08-30 10:26 | disposition home or self-care (01) ==
LOC: HO.US 10:25
PROVIDERS: PCP Family Medicine; Visit Provider Nurse Practitioner Family
DX: R31.29 Other microscopic hematuria (principal)
CPT/HCPCS: 76770

== ENCOUNTER 2025-08-17 14:04 | Outpatient (AMB) | payer OTHER, SELFPAY ==
--- NOTE | 2025-08-17 14:08 | MHC.PC.OV ---
Vital Signs 08/17/25 14:10 Height 5 ft 9 in Weight 209 lb 8 oz BMI 30.9 BP 114/82 Blood Pressure Location Rt brachial Position Sitting Respiration 14 Pulse 80 Pulse Source Pulse Oximeter Temp 98.8 F Temp Source Oral Pulse Oximetry (%) 98 Oxygen Delivery Method Room Air Intake Visit Reasons: Physical, Dr. Hansen Pt. Intake Note: Physical Physics Faculty Member Required: No Allergies ibuprofen (From Advil) Allergy (Mild, Verified 08/17/25 14:08) unknown ampicillin Allergy (Unknown, Verified 08/17/25 14:08) eye swelling, blisters aspirin Allergy (Unknown, Verified 08/17/25 14:08) swelling, bllisters penicillin G Allergy (Unknown, Verified 08/17/25 14:08) blisters, swelling penicillin V Allergy (Unknown, Verified 08/17/25 14:08) Blisters, swelling. Medication List - Last Reconciled 08/17/25 by Rosa Petit PA-C losartan 50 mg PO DAILY tirzepatide (Mounjaro) 2.5 mg (0.5 mL) subcut QWEEK 4 weeks Tobacco use date assessed: 08/17/25 Dental Screening Dental Screen Date: 08/17/25 Did you have a dental visit in the last 12 months?: Yes Did you have a dental problem in the last 6 months where you did not have access to dental care?: No Was dental information given to patient?: Patient has dentist HPI Physical, Dr. Hansen Pt. HPI Details Pt is a 40 y/o male who presents today for a physical exam. Normally follows with Dr. Dean CV: bp today is 114/82. He is doing well on losartan 50 mg. General: he would like to restart Mounjaro for weight loss. He was on this a few years ago for impaired fasting glucose but since then has lost weight. He has had normal blood sugars. His insurance would not cover Mounjaro as he is not an actual diabetic. He would like to go on Zepbound. He does have a history of obstructive sleep apnea. Uro: supposed to follow up with in October with urology for microscopic hematuria. PFSH Surgical History Hx of tooth extraction Family History Father Heart attack Paternal Grandfather Heart attack Paternal Uncle Heart attack Maternal Aunt FH: bladder cancer Unknown Cancer Social History Housing: House Alcohol intake: never Patient Tobacco Use Status: Never used Tobacco e-Cigarette/Vaping Use: Never Used Second Hand Smoke Exposure: No service: No Current occupational status: employed Current occupation: warehouse Current occupational exposures/hazards: No Cognitive needs: No Hearing needs: No Vision needs: No Questionnaire PHQ-9 Over the last 2 weeks, how often have you been bothered by any of the following problems? 1. Little interest or pleasure in doing things: nearly every day 2. Feeling down, depressed, or hopeless: not at all 3. Trouble falling or staying asleep, or sleeping too much: not at all 4. Feeling tired or having little energy: not at all 5. Poor appetite or overeating: not at all 6. Feeling bad about yourself - or that you are a failure or have let yourself or your family down: not at all 7. Trouble concentrating on things, such as reading the newspaper or watching television: not at all 8. Moving or speaking so slowly that other people could have noticed. Or the opposite - being so fidgety or restless that you have been moving around a lot more than usual: not at all 9. Thoughts that you would be better off or of hurting yourself in some way: not at all Total score: 3 Source: Developed by Drs. Joel Pedersen, Charlee Nagy, Pawel Aburto and colleagues, with an educational nahed from [employer]. Thrive Questionnaire Date Thrive assessed: 12/08/22 I am a: Patient What is your living situation today?: I have a steady place to live Within the past 12 months, did the food you bought not last and you didn't have the money to get more?: Often true Within the past 12 months, did you worry whether your food would run out before you got money to buy more?: I choose not to answer this question Do you have trouble paying for medicines?: No Do you have trouble getting transportation to medical appointments?: No Do you have trouble paying your heating and electricity bill?: No Do you have trouble taking care of your child, family member or friend?: No Do you have trouble with day-to-day activities such as bathing, preparing meals, shopping, managing finances, etc.?: I choose not to answer this question Are you currently unemployed and looking for a job?: No Are you interested in more education?: No Please select the resources that you would like help with: None Currently or been in a relationship where the following occur: I choose not to answer THRIVE Score: 1 AUDIT C Alcohol Use Questionnaire (AUDIT-C) 1. How often do you have a drink containing alcohol?: Monthly or less 2. How many drinks containing alcohol do you have on a typical day when you are drinking?: 1 or 2 3. How often do you have six or more drinks on one occasion?: Never Total Score: 1 ZHOU-7 AMB Questionnaire ZHOU-7 Date ZHOU - 7 assessed: 06/25/23 Feeling nervous, anxious, or on edge: 0 = Not at all Not being able to stop or control worryin = Not at all Worrying too much about different things: 0 = Not at all Trouble relaxin = Not at all Being so restless that it is hard to sit still: 0 = Not at all Becoming easily annoyed or irritable: 0 = Not at all Feeling afraid as if something awful might happen: 0 = Not at all Total ZHOU-7 score (0-4 normal; 5-9 mild; 10-14 moderate; 15-21 severe): 0 Source: Developed by Drs. Joel Pedersen, Charlee Nagy, Pawel Aburto and colleagues, with an educational nahed from [employer]. Physical exam (Primary Care) Vital Signs: Last Vital Signs Temp 98.8 F 08/17/25 14:10 Pulse 80 08/17/25 14:10 Resp 14 08/17/25 14:10 BP 114/82 08/17/25 14:10 Pulse Ox 98 08/17/25 14:10 Oxygen Delivery Method Room Air 08/17/25 14:10 BMI result Body Mass Index 30.9 Tobacco/Smoking Status: Tobacco use Status Tobacco use date assessed 08/17/25 08/17/25 14:12 Patient Tobacco Use Status Never used Tobacco 08/17/25 14:12 e-Cigarette/Vaping Use Never Used 08/17/25 14:12 PHQ-9: PHQ-9 Score PHQ-9: Total score 3 08/17/25 14:17 Thrive Assessment: Date of Thrive Assessment Date Thrive assessed 12/08/22 08/17/25 14:12 Currently or been in a relationship where the following occur: I choose not to answer Const Orientation/consciousness: patient oriented x3 HENMT Ears: hearing grossly normal bilaterally and TM's normal bilaterally General nose exam: No nasal polyps present Face and sinus: Yes sinuses nontender Mouth: Normal oral and palatal mucosa present Eyes Pupils: Equal, round and reactive pupils present EOM: EOMs intact bilaterally Neck Neck: Yes full ROM and Yes no lymphadenopathy Thyroid: Thyroid normal Chest Chest palpation & inspection: normal inspection of the chest Resp Auscultation: clear to auscultation bilaterally Cardio Rate: regular rate Rhythm: regular rhythm Heart sounds: S1 normal heart sound present and S2 normal heart sound present Peripheral pulses: Peripheral pulses 2+ throughout GI Other: Soft, nontender Auscultation: normal bowel sounds Rectal Exam - Male: Yes deferred General: Yes no CVA tenderness Back/Spine/Pelvis Other: Nontender Back: no CVA tenderness Skin General skin exam: no rashes or lesions noted Neuro General: patient oriented x3, gait normal, CN's II-XI intact bilaterally and deep tendon reflexes 2+ bilaterally Cranial nerves: Yes Equal, round and reactive pupils present Motor exam (neuro): 5/5 motor strength present throughout Sensory Exam: double simultaneous stimulation for sensation normal Coordination: [id number] test normal and Romberg test negative Extrem General: Yes normal to inspection and Yes full ROM Psych Affect: normal affect Attitude: cooperative Thought process: Normal thought process present Thought content: Normal thought content present Insight: Good insight present (Psych) Judgement: Good judgement present (Psych) Coding Level of Care Code Est Pt Prev Care [id number]) Diagnoses Encounter for routine history and physical examination Z00. Class 1 obesity with serious comorbidity and body mass index (BMI) of 32.0 to 32.9 in adult E66.811; Z68.32 Essential hypertension I10 CHARLES (obstructive sleep apnea) G47.33 Microscopic hematuria R31.29 Assessment & Plan Assessment & Plan (1) Encounter for routine history and physical examination: Code(s): Z00.00 - Encounter for general adult medical examination without abnormal findings Plan: Health maintenance reviewed. Labs ordered (2) Class 1 obesity with serious comorbidity and body mass index (BMI) of 32.0 to 32.9 in adult: Code(s): E66.811 - Obesity, class 1; Z68.32 - Body mass index [BMI] 32.0-32.9, adult Category: Medical Plan: We will try to get that bound covered as he has done well with this in the past. He does have obstructive sleep apnea and hypertension. (3) Essential hypertension: Code(s): I10 - Essential (primary) hypertension Category: Medical Plan: WNL continue current regimen (4) CHARLES (obstructive sleep apnea): Comment: Moderate degree of sleep apnea. The total AHI was 20/hr and oxygen jhonny was 80%. Code(s): G47.33 - Obstructive sleep apnea (adult) (pediatric) Category: Medical Plan: Continue CPAP (5) Microscopic hematuria: Code(s): R31.29 - Other microscopic hematuria Category: Medical Plan: Reminded him to follow up with Urology Orders: Orders Comprehensive [place]. Panel Fast 08/17/25 E66.811 - Obesity, class 1, E78.00 - Pure hypercholesterolemia, unspecified, G47.33 - Obstructive sleep apnea (adult) (pediatric), I10 - Essential (primary) hypertension, R31.29 - Other microscopic hematuria, Z00.00 - Encounter for general adult medical examination without abnormal findings, Z01.89 - Encounter for other specified special examinations, Z68.32 - Body mass index [BMI] 32.0-32.9, adult Complete Blood Count Auto Diff 08/17/25 E66.811 - Obesity, class 1, E78.00 - Pure hypercholesterolemia, unspecified, G47.33 - Obstructive sleep apnea (adult) (pediatric), I10 - Essential (primary) hypertension, R31.29 - Other microscopic hematuria, Z00.00 - Encounter for general adult medical examination without abnormal findings, Z01.89 - Encounter for other specified special examinations, Z68.32 - Body mass index [BMI] 32.0-32.9, adult Lipid Panel 08/17/25 E66.811 - Obesity, class 1, E78.00 - Pure hypercholesterolemia, unspecified, G47.33 - Obstructive sleep apnea (adult) (pediatric), I10 - Essential (primary) hypertension, R31.29 - Other microscopic hematuria, Z00.00 - Encounter for general adult medical examination without abnormal findings, Z01.89 - Encounter for other specified special examinations, Z68.32 - Body mass index [BMI] 32.0-32.9, adult TSH reflex Free T4 08/17/25 E66.811 - Obesity, class 1, E78.00 - Pure hypercholesterolemia, unspecified, G47.33 - Obstructive sleep apnea (adult) (pediatric), I10 - Essential (primary) hypertension, R31.29 - Other microscopic hematuria, Z00.00 - Encounter for general adult medical examination without abnormal findings, Z01.89 - Encounter for other specified special examinations, Z68.32 - Body mass index [BMI] 32.0-32.9, adult Microalbumin, Random (w Creat) 08/17/25 E66.811 - Obesity, class 1, E78.00 - Pure hypercholesterolemia, unspecified, G47.33 - Obstructive sleep apnea (adult) (pediatric), I10 - Essential (primary) hypertension, R31.29 - Other microscopic hematuria, Z00.00 - Encounter for general adult medical examination without abnormal findings, Z01.89 - Encounter for other specified special examinations, Z68.32 - Body mass index [BMI] 32.0-32.9, adult Hepatitis C Antibody 08/17/25 Z20.2 - Contact with and (suspected) exposure to infections with a predominantly sexual mode of transmission HIV Ab/Ag 08/17/25 Z20.2 - Contact with and (suspected) exposure to infections with a predominantly sexual mode of transmission UA CC w/rflx Micro + Cult 08/17/25 E66.811 - Obesity, class 1, E78.00 - Pure hypercholesterolemia, unspecified, G47.33 - Obstructive sleep apnea (adult) (pediatric), I10 - Essential (primary) hypertension, R30.0 - Dysuria, R31.29 - Other microscopic hematuria, Z00.00 - Encounter for general adult medical examination without abnormal findings, Z01.89 - Encounter for other specified special examinations, Z68.32 - Body mass index [BMI] 32.0-32.9, adult Syphilis Screen 08/17/25 Z20.2 - Contact with and (suspected) exposure to infections with a predominantly sexual mode of transmission CT NG by PCR Urine 08/17/25 R30.0 - Dysuria Medications: New tirzepatide (weight loss) (Zepbound) 2.5 mg (0.5 mL) subcut QWEEK 2 mL 2RF Discontinued tirzepatide (Mounjaro) Discontinued Reason: Doctor's Order 2.5 mg (0.5 mL) subcut QWEEK 4 weeks 2 mL 0RF
[2025-08-17 14:10] VITALS: BP 114/82; PULSE 80; RESP 14; TEMP 37.1; O2SAT 98; BMI 30.9
== END 2025-08-17 14:38 | disposition home or self-care (01) ==
LOC: HO.HMCFM 14:05
PROVIDERS: PCP Family Medicine; Visit Provider Physician Assistant
DX: Z00.00 Encounter for general adult medical examination without abnormal findings (principal); E66.811 Obesity, class 1; Z68.32 Body mass index [BMI] 32.0-32.9, adult; I10 Essential (primary) hypertension; G47.33 Obstructive sleep apnea (adult) (pediatric); R31.29 Other microscopic hematuria

== ENCOUNTER → 2025-08-17 14:04 | Outpatient (BNVA) | payer OTHER, SELFPAY | PROVIDERS: PCP Family Medicine; Visit Provider Physician Assistant | DX: Z00.00 Encounter for general adult medical examination without abnormal findings (principal); E66.811 Obesity, class 1; I10 Essential (primary) hypertension; G47.33 Obstructive sleep apnea (adult) (pediatric); R31.29 Other microscopic hematuria; R30.0 Dysuria; Z68.32 Body mass index [BMI] 32.0-32.9, adult | CPT/HCPCS: 99395 ==

== ENCOUNTER 2025-10-21 11:49 | Outpatient (REF) | payer OTHER, SELFPAY ==
[2025-10-21 13:29] LABS: MANUAL DIFF FLAG NO
[2025-10-21 13:31] LABS: Hematocrit 42.3 % (42.0-52.0); Hemoglobin 13.9 g/dl (14.0-18.0); Imm Gran Abs Auto 0.01 X10*3/uL (0.00-0.03); Imm Gran Pct Auto 0.2 % (0.0-0.4); Lymphocytes Absolute Auto 1.9 X10*3/uL (1.2-4.9); Mean Corpuscular HGB Conc 32.9 g/dl (31.0-36.0); Mean Corpuscular Hemoglobin 30.0 pg (27.0-33.0); Mean Corpuscular Volume 91.4 fL (80.0-98.0); NRBC Abs Auto 0.000 X10*3/uL (0.0-0.012); NRBC Pct Auto 0.0 /100WBC (0.0-0.2); Platelet Count 227 X10*3/uL (160-400); Red Blood Count 4.63 X10*6/uL (4.60-5.80); White Blood Count 5.0 X10*3/uL (4.8-10.8)
[2025-10-21 13:48] LABS: Alanine Aminotransferase 62 U/L (0-40); Albumin Level 4.8 g/dL (3.5-5.0); Alkaline Phosphatase 57 U/L (39-117); Anion Gap 10 (12-20); Aspartate Amino Transferase 42 U/L (5-37); Blood Urea Nitrogen 12 mg/dL (9-16); Calcium 9.3 mg/dL (8.4-10.2); Carbon Dioxide 31 mmol/L (22-29); Chloride 105 mmol/L (96-108); Cholesterol 201 mg/dL (<200); Estimated Glomerular Filt Rate > 60; HDL Cholesterol 40 mg/dL (>40); Potassium 4.3 mmol/L (3.3-5.1); Sodium 142 mmol/L (135-145); Total Protein 7.1 g/dL (6.5-8.0); Triglycerides 77 mg/dL (<150)
[2025-10-21 14:03] LABS: HIV Num 1 0.06 S/CO (0.00-0.99); Syphilis Screen Nonreactive (Nonreactive); ~HepC Num1 0.17 S/CO (0.00-0.79); ~Hepatitis C Antibody Nonreactive (Nonreactive)
== END 2025-10-21 11:50 | disposition home or self-care (01) ==
LOC: HO.HMGCLDS 11:49
PROVIDERS: PCP Family Medicine; Visit Provider Physician Assistant
DX: Z00.00 Encounter for general adult medical examination without abnormal findings (principal); Z01.84 Encounter for antibody response examination; Z11.4 Encounter for screening for human immunodeficiency virus [HIV]; Z11.59 Encounter for screening for other viral diseases; I10 Essential (primary) hypertension; E78.00 Pure hypercholesterolemia, unspecified; G47.33 Obstructive sleep apnea (adult) (pediatric); E66.811 Obesity, class 1; Z68.32 Body mass index [BMI] 32.0-32.9, adult; Z01.89 Encounter for other specified special examinations; Z20.2 Contact with and (suspected) exposure to infections with a predominantly sexual mode of transmission; R31.29 Other microscopic hematuria
CPT/HCPCS: 80053; 80061; 84443; 85025; 86780; 86803; 87389